=== PATIENT | male | born 1975 | race Hispanic/Latino ===

== ENCOUNTER 2023-03-15 10:17 | Inpatient (IN) | payer OTHER ==
[~2023-03-15] VITALS: Ht 170.2 cm; Wt 136.1 kg
[2023-03-15] VITALS (10 sets, daily range): BP systolic 107–181; BP diastolic 58–107; PULSE 86–142; RESP 15–24; TEMP 97.2–97.5; O2SAT 95–99
[2023-03-15] MEDS ORDERED: SODIUM CHLORIDE 0.9% 1000ML 1,000 ML IV STA (10:31)
[2023-03-15 10:48] LABS: BASOPHILS # (AUTO) 0.1 (0.0-0.1); BASOPHILS % 0.4 % (0.0-1.0); HEMATOCRIT 45.1 % (38.2-49.6); HEMOGLOBIN 15.3 g/dL (14.0-18.0); LYMPHOCYTES # (AUTO) 1.8 (1.0-3.2); LYMPHOCYTES % 12.5 % (18.0-39.1); MEAN CORPUSCULAR HEMOGLOBIN 30.7 pg (28-32); MEAN CORPUSCULAR HGB CONC 33.9 g/dL (31-35); MEAN CORPUSCULAR VOLUME 90.6 fL (81-99); MONOCYTES # (AUTO) 1.1 (0.2-0.8); MONOCYTES % 7.8 % (4.4-11.3); NEUTROPHILS # (AUTO) 11.1 (2.1-6.9); NEUTROPHILS % 78.4 % (38.7-80.0); PLATELET COUNT 372 x10e3/uL (140-360); RED BLOOD COUNT 4.98 x10e6/uL (4.3-5.7); RED CELL DISTRIBUTION WIDTH 15.4 % (11.7-14.4)
[2023-03-15] MEDS ORDERED: SODIUM CHLORIDE 0.9% 1000ML 1,000 ML ONE ×2 (10:55→15:41)
[2023-03-15 11:02] LABS: INR 1.1; PROTHROMBIN TIME 14.7 seconds (11.9-14.5)
[2023-03-15 11:03] LABS: PARTIAL THROMBOPLASTIN TIME 28.1 seconds (23.8-35.5)
[2023-03-15 11:09] LABS: ALANINE AMINOTRANSFERASE 22 IU/L (0-55); ALBUMIN 3.3 g/dL (3.5-5.0); ALBUMIN/GLOBULIN RATIO 0.6 (0.8-2.0); ALKALINE PHOSPHATASE 109 IU/L (40-150); ANION GAP 25.2 mmol/L (8-16); BLOOD UREA NITROGEN 16 mg/dL (7-26); BUN/CREATININE RATIO 11 (6-25); CALCIUM 9.2 mg/dL (8.4-10.2); CARBON DIOXIDE 11 mmol/L (22-29); CHLORIDE 105 mmol/L (98-107); CREATINE KINASE 157 IU/L (30-200); CREATININE, SERUM 1.46 mg/dL (0.72-1.25); GLUCOSE 368 mg/dL (74-118); LIPASE 22 U/L (8-78); MAGNESIUM 1.9 MG/DL (1.3-2.1); POTASSIUM 3.2 mmol/L (3.5-5.1); SODIUM 138 mmol/L (136-145)
[2023-03-15] MEDS ORDERED: IOPAMIDOL 370 MG/ML 100 ML INFUS..BTL INJ ONE (11:27)
[2023-03-15] MEDS ORDERED: PIPERACILLIN/TAZOBACTAM 3.375 GM VIAL ONE ×2 (11:36→12:13)
[2023-03-15] MEDS ORDERED: Vancomycin IV 1 GM VIAL ONE ×2 (11:36→12:13)
[2023-03-15] MEDS ORDERED: SODIUM CHLORIDE 0.9% 250ML 250 ML ONE ×3 (11:37→15:41)
[2023-03-15] MEDS ORDERED: Vancomycin IV 1 GM in SODIUM CHLORIDE 0.9% 250ML 250 ML IV ONE (12:30)
[2023-03-15] MEDS ORDERED: INSULIN REGULAR, HUMAN 100 UNIT/1 ML IV ONE (13:30)
[2023-03-15] MEDS ORDERED: POTASSIUM CHLORIDE 20MEQ/100ML 200 ML IV PRN (13:45)
[2023-03-15] MEDS ORDERED: MAGNESIUM SULF 1GRAM/DEXTROSE 100 ML IV PRN (13:45)
[2023-03-15] MEDS ORDERED: ZOLPIDEM TARTRATE 5 MG TAB PO PRN (14:15)
[2023-03-15] MEDS ORDERED: ONDANSETRON HCL INJ 2MG/ML 2ML 2 MG/ML VIAL IV PRN (14:15)
[2023-03-15 14:28] LABS: CLARITY,URINE CLEAR (CLEAR); COLOR,URINE YELLOW (YELLOW); KETONES,URINE >=160 (NEGATIVE); LEUKOCYTE ESTERASE ,URINE NEGATIVE (NEGATIVE); NITRITE,URINE NEGATIVE (NEGATIVE); PROTEIN,URINE DIPSTICK 1+ (NEGATIVE); URINE UROBILINOGEN 0.2 mg/dL (0.2 - 1)
[2023-03-15 14:32] LABS: WBC,URINE (MAN) 0-5 /HPF (0-5)
[2023-03-15 14:33] LABS: BACTERIA,URINE FEW /HPF; EPITHELIAL CELLS,URINE FEW /LPF
[2023-03-15 14:34] LABS: ABG HCO3 10 mmol/L (22-26); ABG PCO2 23 mmHg (35-45); ABG PH 7.23 (7.35-7.45); ABG PO2 104 mmHg (80-105); ABG TCO2 10
[2023-03-15] MEDS ORDERED: CEFTRIAXONE 1 GM VIAL ONE (15:41)
[2023-03-15] MEDS ORDERED: INSULIN REGULAR, HUMAN 100 UNIT/1 ML ONE (15:42)
[2023-03-15] MEDS ORDERED: DEXTROSE 5%/0.45% SOD CHL 1,000 ML IV ONE (15:42)
[2023-03-15] MEDS ORDERED: SODIUM CHLORIDE 0.9% 100 ML ONE (15:51)
[2023-03-15] MEDS: INSULIN REGULAR, HUMAN 3ML VL 100 UNIT in SODIUM CHLORIDE 0.9% 100 ML IV SCH ×4 (16:02→23:21)
[2023-03-15] MEDS: SODIUM CHLORIDE 0.9% 1000ML 1,000 ML IV SCH ×3 (16:06→21:45)
[2023-03-15 16:29] LABS: AMPHETAMINES SCREEN,URINE POSITIVE (NEGATIVE); PHENCYCLIDINE SCREEN,URINE NEGATIVE (NEGATIVE)
[2023-03-15 16:30] LABS: BENZODIAZEPINES SCREEN,URINE NEGATIVE (NEGATIVE)
[2023-03-15 17:41] LABS: ANION GAP 21.2 mmol/L (8-16); CALCIUM 8.6 mg/dL (8.4-10.2); CREATININE, SERUM 1.23 mg/dL (0.72-1.25); MAGNESIUM 1.9 MG/DL (1.3-2.1); POTASSIUM 3.2 mmol/L (3.5-5.1)
[2023-03-15] MEDS: DEXTROSE 5%/0.45% SOD CHL 1,000 ML IV SCH (19:15)
[2023-03-15] MEDS ORDERED: HYDRALAZINE HCL 20 MG/ML VIAL IV PRN (21:00)
[2023-03-15] MEDS ORDERED: ACETAMINOPHEN 325 MG TAB PO PRN (21:00)
[2023-03-15 21:43] LABS: ANION GAP 16.7 mmol/L (8-16); CALCIUM 8.3 mg/dL (8.4-10.2); CREATININE, SERUM 1.14 mg/dL (0.72-1.25); MAGNESIUM 1.8 MG/DL (1.3-2.1)
[2023-03-15 21:52] LABS: POTASSIUM 2.7 mmol/L (3.5-5.1)
[2023-03-15] MEDS ORDERED: POTASSIUM CHLORIDE 20MEQ/100ML 200 ML ONE (21:56)
[2023-03-16] VITALS (21 sets, daily range): BP systolic 112–164; BP diastolic 76–136; PULSE 80–98; RESP 7–22; TEMP 97.8–98.8; O2SAT 87–98
[2023-03-16] MEDS: SODIUM CHLORIDE 0.9% 1000ML 1,000 ML IV SCH ×6 (01:45→21:45)
[2023-03-16 02:06] LABS: CALCIUM 8.6 mg/dL (8.4-10.2); CREATININE, SERUM 1.03 mg/dL (0.72-1.25); MAGNESIUM 1.7 MG/DL (1.3-2.1)
[2023-03-16] MEDS: DEXTROSE 5%/0.45% SOD CHL 1,000 ML IV SCH ×3 (05:11→21:54)
[2023-03-16 06:47] LABS: BASOPHILS % 0.3 % (0.0-1.0); EOSINOPHILS % 0.2 % (0.0-6.0); HEMATOCRIT 37.4 % (38.2-49.6); HEMOGLOBIN 13.1 g/dL (14.0-18.0); LYMPHOCYTES # (AUTO) 1.6 (1.0-3.2); LYMPHOCYTES % 16.7 % (18.0-39.1); MEAN CORPUSCULAR HEMOGLOBIN 31.1 pg (28-32); MEAN CORPUSCULAR VOLUME 88.8 fL (81-99); MONOCYTES # (AUTO) 1.1 (0.2-0.8); MONOCYTES % 10.7 % (4.4-11.3); NEUTROPHILS # (AUTO) 7.1 (2.1-6.9); NEUTROPHILS % 71.6 % (38.7-80.0); PLATELET COUNT 260 x10e3/uL (140-360); RED BLOOD COUNT 4.21 x10e6/uL (4.3-5.7); RED CELL DISTRIBUTION WIDTH 14.8 % (11.7-14.4)
[2023-03-16 07:05] LABS: ANION GAP 12.8 mmol/L (8-16); CALCIUM 8.7 mg/dL (8.4-10.2); CREATININE, SERUM 0.93 mg/dL (0.72-1.25); MAGNESIUM 1.7 MG/DL (1.3-2.1)
[2023-03-16 07:07] LABS: POTASSIUM 2.8 mmol/L (3.5-5.1)
[2023-03-16] MEDS: POTASSIUM CHLORIDE 20MEQ/100ML 200 ML IV PRN ×2 (07:55→17:20)
[2023-03-16] MEDS: NYSTATIN 15 GM POWDER UD BTL TOP SCH ×2 (09:00→17:21)
[2023-03-16 11:07] LABS: ANION GAP 9.9 mmol/L (8-16); CALCIUM 8.6 mg/dL (8.4-10.2); CREATININE, SERUM 0.88 mg/dL (0.72-1.25); MAGNESIUM 1.6 MG/DL (1.3-2.1)
[2023-03-16 11:17] LABS: POTASSIUM 2.9 mmol/L (3.5-5.1)
[2023-03-16 16:12] LABS: ANION GAP 9.9 mmol/L (8-16); CALCIUM 8.6 mg/dL (8.4-10.2); CREATININE, SERUM 0.96 mg/dL (0.72-1.25)
[2023-03-16 16:17] LABS: POTASSIUM 2.9 mmol/L (3.5-5.1)
[2023-03-16] MEDS ORDERED: MUPIROCIN 2% OINT 22 GM TUBE TOP SCH (18:00)
[2023-03-16 21:29] LABS: ANION GAP 9.5 mmol/L (8-16); CALCIUM 8.3 mg/dL (8.4-10.2); CREATININE, SERUM 0.81 mg/dL (0.72-1.25)
[2023-03-16 21:37] LABS: POTASSIUM 2.5 mmol/L (3.5-5.1)
[2023-03-17] VITALS (17 sets, daily range): BP systolic 108–167; BP diastolic 56–105; PULSE 85–100; RESP 9–21; TEMP 97.8–98.4; O2SAT 94–98
[2023-03-17 01:08] LABS: ANION GAP 10.6 mmol/L (8-16); CALCIUM 8.6 mg/dL (8.4-10.2); CREATININE, SERUM 0.75 mg/dL (0.72-1.25)
[2023-03-17 01:09] LABS: POTASSIUM 2.6 mmol/L (3.5-5.1)
[2023-03-17] MEDS: POTASSIUM CHLORIDE 20MEQ/100ML 200 ML IV PRN (01:24)
[2023-03-17] MEDS: INSULIN REGULAR, HUMAN 3ML VL 100 UNIT in SODIUM CHLORIDE 0.9% 100 ML IV SCH ×2 (01:38)
[2023-03-17] MEDS: SODIUM CHLORIDE 0.9% 1000ML 1,000 ML IV SCH ×6 (01:45→22:43)
[2023-03-17] MEDS ORDERED: MAGNESIUM SULF 1GRAM/DEXTROSE 100 ML IV ONE (02:37)
[2023-03-17] MEDS: DEXTROSE 5%/0.45% SOD CHL 1,000 ML IV SCH ×2 (05:57→17:16)
[2023-03-17 05:59] LABS: ANION GAP 9.8 mmol/L (8-16); CALCIUM 8.8 mg/dL (8.4-10.2); CREATININE, SERUM 0.76 mg/dL (0.72-1.25)
[2023-03-17 06:01] LABS: POTASSIUM 2.8 mmol/L (3.5-5.1)
[2023-03-17] MEDS ORDERED: DEXTROSE 50% SYRINGE 50 ML IV PRN (07:45)
[2023-03-17] MEDS: MUPIROCIN 2% OINT 22 GM TUBE TOP SCH (08:07)
[2023-03-17] MEDS: NYSTATIN 15 GM POWDER UD BTL TOP SCH ×2 (08:08→17:16)
[2023-03-17] MEDS ORDERED: INSULIN GLARGINE 100 UNITS/ML VIAL SQ ONE (08:30)
[2023-03-17] MEDS: INSULIN REGULAR, HUMAN 100 UNIT/1 ML SQ SCH ×3 (11:25→22:43)
[2023-03-17] MEDS ORDERED: ONDANSETRON HCL 4 MG ORAL DISINTEGRATING TAB PO PRN (13:30)
[2023-03-17 15:36] LABS: ANION GAP 10.8 mmol/L (8-16); CALCIUM 8.7 mg/dL (8.4-10.2); CREATININE, SERUM 0.87 mg/dL (0.72-1.25)
[2023-03-17 15:40] LABS: POTASSIUM 2.8 mmol/L (3.5-5.1)
[2023-03-18] VITALS (8 sets, daily range): BP systolic 96–156; BP diastolic 57–88; PULSE 77–91; RESP 17–20; TEMP 97.9–98.6; O2SAT 98–100
[2023-03-18] MEDS: DEXTROSE 5%/0.45% SOD CHL 1,000 ML IV SCH (01:45)
[2023-03-18] MEDS: SODIUM CHLORIDE 0.9% 1000ML 1,000 ML IV SCH ×3 (06:34→17:16)
[2023-03-18] MEDS ORDERED: SODIUM CHLORIDE 0.9% 1000ML 1,000 ML IV SCH (08:30)
[2023-03-18 08:55] LABS: BASOPHILS % 0.6 % (0.0-1.0); EOSINOPHILS # (AUTO) 0.1 (0.0-0.4); EOSINOPHILS % 1.5 % (0.0-6.0); HEMATOCRIT 37.8 % (38.2-49.6); HEMOGLOBIN 12.8 g/dL (14.0-18.0); LYMPHOCYTES % 29.8 % (18.0-39.1); MEAN CORPUSCULAR HEMOGLOBIN 31.2 pg (28-32); MEAN CORPUSCULAR HGB CONC 33.9 g/dL (31-35); MEAN CORPUSCULAR VOLUME 92.2 fL (81-99); MONOCYTES # (AUTO) 0.9 (0.2-0.8); MONOCYTES % 14.1 % (4.4-11.3); NEUTROPHILS # (AUTO) 3.4 (2.1-6.9); NEUTROPHILS % 51.9 % (38.7-80.0); PLATELET COUNT 211 x10e3/uL (140-360); RED CELL DISTRIBUTION WIDTH 14.6 % (11.7-14.4)
[2023-03-18] MEDS: PANTOPRAZOLE SOD 40 MG TABEC PO SCH (08:59)
[2023-03-18] MEDS: MUPIROCIN 2% OINT 22 GM TUBE TOP SCH (09:00)
[2023-03-18] MEDS: NYSTATIN 15 GM POWDER UD BTL TOP SCH ×2 (09:09→17:18)
[2023-03-18 09:10] LABS: ANION GAP 11.7 mmol/L (8-16); CALCIUM 8.6 mg/dL (8.4-10.2); CREATININE, SERUM 0.65 mg/dL (0.72-1.25)
[2023-03-18] MEDS: INSULIN GLARGINE 100 UNITS/ML VIAL SQ SCH ×2 (09:10→17:25)
[2023-03-18] MEDS: INSULIN REGULAR, HUMAN 100 UNIT/1 ML SQ SCH ×4 (09:12→20:21)
[2023-03-18 09:24] LABS: POTASSIUM 2.7 mmol/L (3.5-5.1)
[2023-03-18] MEDS: AZITHROMYCIN 250 MG TAB PO SCH (12:11)
[2023-03-18 19:16] LABS: ANION GAP 13.1 mmol/L (8-16); CALCIUM 8.7 mg/dL (8.4-10.2); CREATININE, SERUM 0.78 mg/dL (0.72-1.25); POTASSIUM 3.1 mmol/L (3.5-5.1)
[2023-03-19] VITALS: BP 132/79; PULSE 95; RESP 18; TEMP 98.1; O2SAT 99
[2023-03-19 04:00] VITALS: BP 142/81; PULSE 86; RESP 18; TEMP 97.8; O2SAT 96
[2023-03-19] MEDS: SODIUM CHLORIDE 0.9% 1000ML 1,000 ML IV SCH (05:10)
[2023-03-19 05:58] LABS: BASOPHILS # (AUTO) 0.1 (0.0-0.1); BASOPHILS % 0.8 % (0.0-1.0); EOSINOPHILS # (AUTO) 0.2 (0.0-0.4); EOSINOPHILS % 2.3 % (0.0-6.0); HEMATOCRIT 37.1 % (38.2-49.6); HEMOGLOBIN 12.9 g/dL (14.0-18.0); LYMPHOCYTES # (AUTO) 2.1 (1.0-3.2); LYMPHOCYTES % 26.6 % (18.0-39.1); MEAN CORPUSCULAR HEMOGLOBIN 31.2 pg (28-32); MEAN CORPUSCULAR HGB CONC 34.8 g/dL (31-35); MEAN CORPUSCULAR VOLUME 89.8 fL (81-99); MONOCYTES # (AUTO) 0.9 (0.2-0.8); MONOCYTES % 11.3 % (4.4-11.3); NEUTROPHILS # (AUTO) 4.5 (2.1-6.9); NEUTROPHILS % 57.2 % (38.7-80.0); PLATELET COUNT 235 x10e3/uL (140-360); RED BLOOD COUNT 4.13 x10e6/uL (4.3-5.7); RED CELL DISTRIBUTION WIDTH 14.4 % (11.7-14.4)
[2023-03-19 06:36] LABS: ANION GAP 11.6 mmol/L (8-16); BLOOD UREA NITROGEN < 5 mg/dL (7-26); BUN/CREATININE RATIO 7 (6-25); CALCIUM 8.6 mg/dL (8.4-10.2); CARBON DIOXIDE 29 mmol/L (22-29); CHLORIDE 101 mmol/L (98-107); CREATININE, SERUM 0.67 mg/dL (0.72-1.25); GLUCOSE 262 mg/dL (74-118); SODIUM 139 mmol/L (136-145)
[2023-03-19 06:37] LABS: POTASSIUM 2.6 mmol/L (3.5-5.1)
[2023-03-19] MEDS ORDERED: POTASSIUM CHLORIDE 10MEQ EA PO ONE (07:30)
[2023-03-19] MEDS: PANTOPRAZOLE SOD 40 MG TABEC PO SCH (08:35)
[2023-03-19] MEDS: POTASSIUM CHLORIDE 20MEQ/100ML 100 ML IV SCH ×2 (08:37→10:15)
[2023-03-19] MEDS: INSULIN REGULAR, HUMAN 100 UNIT/1 ML SQ SCH ×3 (08:37→16:30)
[2023-03-19] MEDS: INSULIN GLARGINE 100 UNITS/ML VIAL SQ SCH ×2 (08:41→17:00)
[2023-03-19] MEDS: NYSTATIN 15 GM POWDER UD BTL TOP SCH ×2 (08:55→17:00)
[2023-03-19] MEDS: MUPIROCIN 2% OINT 22 GM TUBE TOP SCH (08:55)
[2023-03-19 08:56] VITALS: BP 146/101; PULSE 86; RESP 19; TEMP 98.1; O2SAT 98
[2023-03-19 09:03] VITALS: BP 146/101; PULSE 86; RESP 19; TEMP 98.1; O2SAT 98
[2023-03-19 11:43] LABS: ANION GAP 10.4 mmol/L (8-16); BLOOD UREA NITROGEN < 5 mg/dL (7-26); BUN/CREATININE RATIO 7 (6-25); CARBON DIOXIDE 31 mmol/L (22-29); CHLORIDE 101 mmol/L (98-107); CREATININE, SERUM 0.73 mg/dL (0.72-1.25); GLUCOSE 283 mg/dL (74-118); POTASSIUM 3.4 mmol/L (3.5-5.1); SODIUM 139 mmol/L (136-145)
[2023-03-19 12:02] VITALS: BP 133/79; PULSE 87; RESP 20; TEMP 97.8; O2SAT 95
[2023-03-19] MEDS: AZITHROMYCIN 250 MG TAB PO SCH (13:01)
[2023-03-19] MEDS ORDERED: POTASSIUM CHLORIDE 20 MEQ TAB CR PO ONE (16:30)
[2023-03-19] MEDS ORDERED: METFORMIN HCL500 MG PO (18:10)
[2023-03-19] MEDS ORDERED: INSULIN GL100 UNIT/3 SQ (18:10)
[2023-03-19] MEDS ORDERED: NYSTATIN1000000 UN TOP (18:12)
[2023-03-19] MEDS ORDERED: LEVOFLOXACIN250 MG PO (18:13)
[2023-03-19] MEDS ORDERED: POTASSIUM CHLO20 ME1 PO (18:13)
== END 2023-03-19 19:10 | disposition home or self-care (01) | DRG 637 ==
LOC: ER 10:26 → ERHOLD 14:08 → ICU 18:07 → MED/SURG2 03-17 13:05
PROVIDERS: ADMIT Family Medicine; ATTEND Family Medicine
PROC: 02HV33Z Insertion of Infusion Device into Superior Vena Cava, Percutaneous Approach (ICD-10-PCS; principal; 2023-03-15)
PROC: B548ZZA Ultrasonography of Superior Vena Cava, Guidance (ICD-10-PCS; 2023-03-15)
DX: E11.10 Type 2 diabetes mellitus with ketoacidosis without coma (principal); J18.9 Pneumonia, unspecified organism; N17.9 Acute kidney failure, unspecified; E87.6 Hypokalemia; M54.50 Low back pain, unspecified; Z20.822 Contact with and (suspected) exposure to COVID-19; I10 Essential (primary) hypertension; R53.1 Weakness; E86.0 Dehydration; L02.224 Furuncle of groin; L02.32 Furuncle of buttock; Z72.0 Tobacco use; Z59.00 Homelessness unspecified; Z63.0 Problems in relationship with spouse or partner
CPT/HCPCS: 0223U; 36415; 36569; 36600; 71045; 74177; 80048; 80053; 80307; 81001; 82550; 82553; 82805; 82948; 83605; 83690; 83735; 83880; 84484; 85025; 85610; 85730; 87040; 87071; 87205; 93005; 96372; 99252; 99285; J0696; J1815; J2543; J3475; J3480; J7030; J7050; Q9967